=== PATIENT | male | born 1950 | race Caucasian/White ===

== ENCOUNTER 2020-03-07 18:00 | Emergency (ER) | payer MEDICARE ==
[~2020-03-07] VITALS: Ht 177.8 cm; Wt 73.0 kg
[2020-03-07] MEDS ORDERED: CITA10TA16 PO (18:10)
[2020-03-07 19:29] LABS: BASOPHILS % 0.8 % (0.0-2.0); EOSINOPHILS % 0.5 % (0.0-5.0); HEMATOCRIT. 37.5 % (42.0-52.0); HEMOGLOBIN. 12.7 g/dL (14.0-18.0); LYMPHOCYTES % 27.5 % (20.0-50.0); MEAN CORPUSCULAR HEMOGLOBIN 28.8 pg (28.0-32.0); MEAN CORPUSCULAR VOLUME 84.8 fL (80.0-94.0); MEAN PLATELET VOLUME 9.2 fl (7.4-10.4); MONOCYTES % 8.6 % (2.0-8.0); NEUTROPHILS % 62.6 % (40.0-76.0); PLATELET 169 x1000/uL (130-400); RED BLOOD CELL COUNT 4.42 mill/uL (4.7-6.1); RED CELL DISTRIBUTION WIDTH 13.8 % (11.6-14.6)
[2020-03-07 19:38] LABS: CHLORIDE 106 mEq/L (98-107)
[2020-03-07 19:41] LABS: INR 1.1; PROTHROMBIN TIME 11.1 sec (9.6-11.0)
[2020-03-07 19:45] LABS: PHOSPHORUS 2.5 mg/dL (2.5-4.9)
[2020-03-07] MEDS ORDERED: ACETAMINOPHEN 325MG TABLET PO ONE (19:45)
[2020-03-07] MEDS ORDERED: ALPRAZOLAM 0.5 MG TABLET PO ONE (20:00)
[2020-03-07 21:35] VITALS: BP 121/79
== END 2020-03-07 21:43 | disposition home or self-care (01) ==
LOC: ER 18:00
DX: R07.9 Chest pain, unspecified (principal); F41.9 Anxiety disorder, unspecified; E78.00 Pure hypercholesterolemia, unspecified; F17.200 Nicotine dependence, unspecified, uncomplicated
CPT/HCPCS: 36415; 71045; 80053; 83735; 83880; 84100; 84484; 85025; 93005; 99285

== ENCOUNTER 2022-06-29 08:37 | Emergency (ER) | payer MEDICARE, OTHER ==
[~2022-06-29] VITALS: Ht 172.7 cm; Wt 70.0 kg
[~2022-06-29 08:37] MED LIST: CITA10TA16 PO
[2022-06-29 08:42] VITALS: BP 130/94
[2022-06-29 09:47] LABS: BG BASE EXCESS -0.6 mmol/L (-2.0-2.0); BG CARBOXYHEMOGLOBIN 0.2 % (0.5-1.5); BG DEOXYHEMOGLOBIN 4.6 % (0.0-5.0); BG FRACTION INSPIRED OXYGEN 21; BG HCO3 ACT 19.8 mmol/L (22.0-26.0); BG METHEMOGLOBIN 0.2 % (0.0-1.5); BG OXYGEN SATURATION 95.4 % (92.0-98.5); BG PH 7.552 (7.350-7.450); BG PO2 71.4 mmHg (75.0-100.0); BG SAMPLE SITE RIGHT BRACHIAL; BG TOTAL HEMOGLOBIN 14.5 g/dL (12.0-18.0); BG VENT MODE ROOM AIR
[2022-06-29 10:53] LABS: CHLORIDE 104 mEq/L (98-107)
[2022-06-29 10:55] LABS: BASOPHILS % 0.5 % (0.0-2.0); EOSINOPHILS % 0.1 % (0.0-5.0); HEMATOCRIT. 41.3 % (42.0-52.0); HEMOGLOBIN. 13.8 g/dL (14.0-18.0); LYMPHOCYTES % 21.3 % (20.0-50.0); MEAN CORPUSCULAR HEMOGLOBIN 28.7 pg (28.0-32.0); MEAN CORPUSCULAR VOLUME 85.6 fL (80.0-94.0); MONOCYTES % 6.5 % (2.0-8.0); NEUTROPHILS % 71.6 % (40.0-76.0); PLATELET 179 x1000/uL (130-400); RED BLOOD CELL COUNT 4.82 mill/uL (4.7-6.1); RED CELL DISTRIBUTION WIDTH 14.1 % (11.6-14.6)
== END 2022-06-29 11:05 | disposition home or self-care (01) ==
LOC: ER 08:37
DX: B34.9 Viral infection, unspecified (principal); F32.9 Major depressive disorder, single episode, unspecified; F41.9 Anxiety disorder, unspecified; E78.00 Pure hypercholesterolemia, unspecified; Z20.822 Contact with and (suspected) exposure to COVID-19
CPT/HCPCS: 36415; 36600; 71045; 80053; 82375; 82805; 83880; 84484; 85025; 87426; 87804; 93005; 99285